=== PATIENT | male | born 1955 | race Caucasian/White ===

== ENCOUNTER 2017-03-10 09:53 | Day surgery (SDC) | payer BC ==
[2017-03-09 12:07] VITALS: BMI 36.3
[2017-03-10] MEDS ORDERED: PROPOFOL 20 ML ONE (10:17)
[2017-03-10] MEDS ORDERED: LIDOCAINE HCL/PF 2% SDV 5ML VIAL ONE (10:17)
[2017-03-10 11:00] VITALS: TEMP 97.3
[2017-03-10 11:40] VITALS: PULSE 54
[2017-03-10 15:12] VITALS: BP 129/80
--- NOTE | 2017-03-13 13:14 | PATH ---
Surgical Pathology Report Patient Name: ELINA CHÁVEZ [facility]. Rec. #: [id number] /Age/Gender: 1955 (Age: 61) / M Account: [id number] Location: [facility]-ENDOSCOPY Taken: 03/10/2017 Received: 03/10/2017 Reported: 03/13/2017 Physicians: Turner Slaughter M.D. Specimen(s) Received A: BX 2ND PORTION DUODENUM & DUODENAL BULB B: BX ANTRUM C: BX DISTAL & MID ESOPHAGUS Clinical History Occult GI bleeding, dysphagia Hiatal hernia, GERD, no varices Final Diagnosis A. DUODENUM, SECOND PORTION AND BULB, BIOPSY: DUODENAL MUCOSA WITH MILD CHRONIC INFLAMMATION AND ANGELICA'S GLANDS HYPERPLASIA. NO HISTOLOGIC EVIDENCE OF GLUTEN SENSITIVE ENTEROPATHY (CELIAC DISEASE). B. STOMACH, ANTRUM, BIOPSY: GASTRIC ANTRAL AND OXYNTIC MUCOSA WITH MODERATE CHRONIC GASTRITIS WITH FOCAL INTESTINAL METAPLASIA AND FOVEOLAR HYPERPLASIA. NEGATIVE FOR DYSPLASIA. IMMUNOSTAIN FOR H. PYLORI IS NEGATIVE FOR ORGANISMS. C. ESOPHAGUS, DISTAL AND MID, BIOPSY: SQUAMOUS AND FOCALLY COLUMNAR GASTRIC -TYPE MUCOSA WITH CHRONIC INFLAMMATION AND REFLUX TYPE CHANGES. NO INTESTINAL METAPLASIA (GAFFNEY'S ESOPHAGUS) IDENTIFIED NO EVIDENCE OF EOSINOPHILIC ESOPHAGITIS. Electronically Signed Roland Stephens M.D. Gross Description A. Received in formalin, labeled "biopsy second portion of duodenum and duodenal bulb" are 4 davidson, irregular portions of soft tissue ranging from 0.2-0.4 cm in greatest dimension. The specimens are submitted in toto in one cassette. B. Received in formalin, labeled "biopsy antrum" are 4 davidson, irregular portions of soft tissue ranging from 0.2-0.5 cm in greatest dimension. The specimens are submitted in toto in one cassette. C. Received in formalin, labeled "biopsy distal and mid esophagus" are 4 davidson, irregular portions of soft tissue ranging from 0.3-0.6 cm in greatest dimension. The specimens are submitted in toto in one cassette. 03/10/201703/10/2017
== END 2017-03-10 12:30 | disposition home or self-care (01) ==
LOC: JASU-ENDO 09:53 → JASU-SURG 09:53 → JASU-ENDO 12:30
PROVIDERS: ATTEND Internal Medicine Gastroenterology
PROC: 0DB68ZX Excision of Stomach, Via Natural or Artificial Opening Endoscopic, Diagnostic (ICD-10-PCS; 2017-03-10)
PROC: 0DB28ZX Excision of Middle Esophagus, Via Natural or Artificial Opening Endoscopic, Diagnostic (ICD-10-PCS; 2017-03-10)
PROC: 0DB38ZX Excision of Lower Esophagus, Via Natural or Artificial Opening Endoscopic, Diagnostic (ICD-10-PCS; 2017-03-10)
PROC: 0DB98ZX Excision of Duodenum, Via Natural or Artificial Opening Endoscopic, Diagnostic (ICD-10-PCS; principal; 2017-03-10 11:00)
DX: K21.9 Gastro-esophageal reflux disease without esophagitis (principal); K44.9 Diaphragmatic hernia without obstruction or gangrene; R13.10 Dysphagia, unspecified; K92.1 Melena
CPT/HCPCS: 88305-TC; 88342-TC

== ENCOUNTER 2017-04-12 07:42 | Day surgery (SDC) | payer BC ==
[2017-04-11 14:07] VITALS: BMI 35.6
[2017-04-12] MEDS ORDERED: PROPOFOL 20 ML ONE ×2 (08:55)
[2017-04-12 09:39] VITALS: TEMP 97.6
[2017-04-12 10:42] VITALS: BP 113/69; PULSE 60
--- NOTE | 2017-04-19 11:18 | PATH ---
Surgical Pathology Report Patient Name: ELINA CHÁVEZ [facility]. Rec. #: [id number] /Age/Gender: 1955 (Age: 61) / M Account: [id number] Location: [facility]-ENDOSCOPY Taken: 04/12/2017 Received: 04/12/2017 Reported: 04/13/2017 Physicians: Turner Slaughter M.D. Specimen(s) Received A: BX RECTAL POLYPS B: BX POLYPS PROXIMAL TRANSVERSE COLON C: BX POLYPS DESCENDING COLON D: BX POLYP SIGMOID COLON Clinical History Abnormal CT scan Colon polyps, diverticulosis Final Diagnosis A. RECTUM, POLYPS, BIOPSY: FRAGMENTS OF HYPERPLASTIC POLYPS. B. COLON, PROXIMAL TRANSVERSE, POLYPS, BIOPSY: TUBULAR ADENOMA. ADDITIONAL FRAGMENTS OF COLONIC MUCOSA WITH FOCAL SURFACE HYPERPLASTIC CHANGE. C. COLON, DESCENDING, POLYPS, BIOPSY: FRAGMENTS OF TUBULAR ADENOMA. ADDITIONAL FRAGMENTS OF UNREMARKABLE COLONIC MUCOSA. D. COLON, SIGMOID, POLYP, BIOPSY: HYPERPLASTIC POLYP. Electronically Signed Roland Stephens M.D. Gross Description A. Received in formalin, labeled "biopsy rectal polyps" are 3 davidson, irregular portions of soft tissue ranging from 0.1-0.3 cm in greatest dimension. The specimens are submitted in toto in one cassette. B. Received in formalin, labeled "biopsy polyps proximal transverse colon" are 5 davidson, irregular portions of soft tissue ranging from 0.1-0.5 cm in greatest dimension. The specimens are submitted in toto in one cassette. C. Received in formalin, labeled "biopsy polyps ascending colon" are 6 davidson, irregular portions of soft tissue ranging from 0.1-0.3 cm in greatest dimension. The specimens are submitted in toto in one cassette. D. Received in formalin, labeled "biopsy polyp sigmoid" is a davidson, irregular portion of soft tissue measuring 0.3 cm in greatest dimension. The specimen is submitted in toto in one cassette. 04/12/201704/12/2017
== END 2017-04-12 10:42 | disposition home or self-care (01) ==
LOC: JASU-ENDO 07:42
PROVIDERS: ATTEND Internal Medicine Gastroenterology
PROC: 0DBM8ZX Excision of Descending Colon, Via Natural or Artificial Opening Endoscopic, Diagnostic (ICD-10-PCS; 2017-04-12)
PROC: 0DBN8ZX Excision of Sigmoid Colon, Via Natural or Artificial Opening Endoscopic, Diagnostic (ICD-10-PCS; 2017-04-12)
PROC: 0DBL8ZX Excision of Transverse Colon, Via Natural or Artificial Opening Endoscopic, Diagnostic (ICD-10-PCS; principal; 2017-04-12 09:00)
DX: D12.4 Benign neoplasm of descending colon (principal); D12.3 Benign neoplasm of transverse colon; D12.5 Benign neoplasm of sigmoid colon; K57.80 Diverticulitis of intestine, part unspecified, with perforation and abscess without bleeding; K64.8 Other hemorrhoids
CPT/HCPCS: 88305-TC

== ENCOUNTER 2019-10-16 11:44 | Emergency (ER) | payer OTHER, MEDICARE ==
[2019-10-16 11:54] VITALS: BMI 36.4
[2019-10-16 13:10] VITALS: TEMP 97.3
[2019-10-16] MEDS: SODIUM CHLORIDE 1,000 ML IV STA ×2 (13:28→15:57)
--- NOTE | 2019-10-16 13:30 | PDOC ---
History of Present Illness - General Chief Complaint: Lightheaded Stated Complaint: DIZZYNESS Time Seen by Provider: 10/16/19 12:19 History Source: Patient Exam Limitations: No Limitations - History of Present Illness Initial Comments: 10/16/19 13:24 Patient is a 64M with history of HTN, back pain, knee pain (s/p L TKR) here today complaining of dizziness that started yesterday. Patient states that he became concerned when he wasn't able to have a spinal fusion procedure he was scheduled for yesterday due to his blood pressure being in the 200s. He became more concerned today because he measured his blood pressure at 250 systolic at home. Patient states that he has been feeling weak going from a sitting or supine position to standing. The feeling quickly passes. He denies any dizziness at this moment. Patient reports he was started on losartan/HCTZ yesterday and has been urinating more frequently. Patient denies nausea, vomiting, fevers chills. Denies chest pain, shortness of breath, focal weakness. Denies headache. Denies abdominal pain, dysuria. Endorses drinking 10 beers once per week. Denies history of stroke, heart failure. Past History - Past Medical History Allergies/Adverse Reactions: Allergies Allergy/AdvReac Type Severity Reaction Status Date / Time No Known Allergies Allergy Verified 10/16/19 11:54 Home Medications: Ambulatory Orders Carvedilol [Coreg -] 25 mg PO BID 03/09/17 Losartan/Hydrochlorothiazide [Losartan-Hctz 100-25 mg Tab] 1 tab PO DAILY Meloxicam [Mobic] 15 mg PO DAILY 03/09/17 Tamsulosin HCl [Flomax -] 0.4 mg PO HS 04/11/17 Hydrochlorothiazide 25 mg PO DAILY 10/16/19 Omeprazole 20 mg PO DAILY 10/16/19 COPD: No GI Disorders: Yes (COLON POLYPS;GERD;DIVERTICULOSIS;HH) Disorders: Yes (BPH) HTN: Yes Liver Disease: (FATTY LIVER) - Surgical History Orthopedic Surgery: Yes (KNEE SURGERY) - Psycho Social/Smoking Cessation Hx Smoking History: Former smoker Have you smoked in the past 12 months: No If you are a former smoker, when did you quit?: 10/2016 Information on smoking cessation initiated: No Hx Alcohol Use: Yes (OCCA.) Drug/Substance Use Hx: Yes (QUIT ; COCAINE, MARIJUANA, BLACK BEAUTIES) Substance Use Type: Cocaine Hx Substance Use Treatment: No Review of Systems - Review of Systems Able to Perform ROS?: Yes Comments:: 10/16/19 13:28 GENERAL/CONSTITUTIONAL: No fever or chills. No weakness. HEAD, EYES, EARS, NOSE AND THROAT: No change in vision. No ear pain or discharge. No sore throat. CARDIOVASCULAR: No chest pain or shortness of breath RESPIRATORY: No cough, wheezing, or hemoptysis. GASTROINTESTINAL: No nausea, vomiting, diarrhea or constipation. GENITOURINARY: No dysuria, frequency, or change in urination. MUSCULOSKELETAL: No joint or muscle swelling or pain. No neck or back pain. SKIN: No rash NEUROLOGIC: No headache, loss of consciousness, or change in strength/ sensation. +Dizziness ENDOCRINE: No increased thirst. No abnormal weight change ALLERGIC/IMMUNOLOGIC: No hives or skin allergy. *Physical Exam - Vital Signs Last Vital Signs Temp Pulse Resp BP Pulse Ox 97.3 F L 79 18 188/97 H 98 10/16/19 11:50 10/16/19 11:50 10/16/19 11:50 10/16/19 11:50 10/16/19 11:50 - Physical Exam Comments: 10/16/19 13:30 GENERAL: Awake, alert, and fully oriented, in no acute distress HEAD: No signs of trauma, normocephalic, atraumatic EYES: PERRLA, EOMI, sclera anicteric, conjunctiva clear ENT: Auricles normal inspection, hearing grossly normal, nares patent, oropharynx clear without exudates. Moist mucosa NECK: Normal ROM, supple, no lymphadenopathy, JVD, or masses LUNGS: No distress, speaks full sentences, clear to auscultation bilaterally HEART: Regular rate and rhythm, normal S1 and S2, no murmurs, rubs or gallops, peripheral pulses normal and equal bilaterally. ABDOMEN: Soft, nontender, normoactive bowel sounds. No guarding, no rebound. No masses EXTREMITIES: Normal inspection, Normal range of motion, no edema. No clubbing or cyanosis. NEUROLOGICAL: Cranial nerves II through XII grossly intact. Normal speech, normal gait, no focal sensorimotor deficits SKIN: Warm, Dry, normal turgor, no rashes or lesions noted. ED Treatment Course - LABORATORY CBC & Chemistry Diagram: 10/16/19 13:30 10/16/19 13:30 - RADIOLOGY Radiology Studies Ordered: Category Date Time Status CHEST PA & LAT [RAD] Stat Radiology 10/16/19 13:23 Ordered Medical Decision Making - Medical Decision Making 10/16/19 13:30 Patient is a 64M with history of HTN, back pain, L TKR here today complaining of dizziness. Currently asymptomatic. BP 192/100 in triage. Vitals by position: Sitting - 192/100, HR 74 Standing - 175/111, HR 84 Suspect orthostatic hypotension caused by mild dehydration. DDx includes, but is not limited to: ACS, dysrhythmia. Stroke considered, but patient is currently asymptomatic and symptoms are associated with change of position. 10/16/19 13:45 EKG shows NSR with rate of 71. No st elevations/depressions. Normal axis. Normal intervals. No significant t wave abnormalities. 10/16/19 15:09 CBC normal CMP normal Trop negative. CXR shows no acute cardiopulmonary process. 10/16/19 17:45 Repeat BP 203/114, HR 75. Symptoms have resolved with fluids. Case d/w Dr Ruiz, cardiology. Agrees that dizziness caused by dehydration 2/2 medication. Will discontinue losartan/hctz. Will start on amlodipine. Will have appointment available tomorrow for patient. Given return precautions. Discharge - Discharge Information Problems reviewed: Yes Clinical Impression/Diagnosis: Dehydration Condition: Good Disposition: HOME - Admission No - Follow up/Referral Referrals: Silvino Gómez MD, MD [Primary Care Provider] - - Patient Discharge Instructions Patient Printed Discharge Instructions: Essential Hypertension Additional Instructions: Please follow up with Dr Ruiz or another human resources clerk in his group tomorrow. Please call [phone], state that you were seen in the ED today and Dr Ruiz wanted you added to the schedule on or Monday. Please return to the ED immediately if you have any new, worsening, or concerning symptoms, especially headache, chest pain and shortness of breath. Please take the amlodipine as prescribed until your human resources clerk or PCP changes it. Please stop taking the losartan and HCTZ. - Post Discharge Activity
[2019-10-16 14:16] VITALS: BP 183/78; PULSE 74
[2019-10-16 14:21] LABS: BASO % 1.4 % (0-2.0); EOS % 2.5 % (0-4.5); HEMATOCRIT 46.5 % (35.4-49); HEMOGLOBIN 15.6 GM/dL (11.7-16.9); MCH 28.8 pg (25.7-33.7); MCHC 33.6 g/dl (32.0-35.9); MEAN CELL VOLUME 85.7 fl (80-96); MONO % 10.2 % (3.8-10.2); NEUT % 62.9 % (42.8-82.8); PLATELET COUNT 272 K/MM3 (134-434); RBC 5.42 M/mm3 (4.00-5.60); RDW 14.1 % (11.9-15.9); WHITE BLOOD COUNT 7.2 K/mm3 (4.0-10.0)
[2019-10-16 14:56] LABS: ALBUMIN 3.8 g/dl (3.4-5.0); BILIRUBIN,TOTAL 0.8 mg/dL (0.2-1); BLOOD UREA NITROGEN 14.9 mg/dL (7-18); CALCIUM 9.5 mg/dL (8.5-10.1); CREATININE 0.8 mg/dL (0.55-1.3); MAGNESIUM 2.3 mg/dL (1.8-2.4); POTASSIUM 3.7 mmol/L (3.5-5.1); TOT PROT 6.9 g/dl (6.4-8.2)
--- NOTE | 2019-10-16 15:19 | EKG ---
Test Reason : Blood Pressure : / mmHG Vent. Rate : 071 BPM Atrial Rate : 071 BPM P-R Int : 178 ms QRS Dur : 082 ms QT Int : 410 ms P-R-T Axes : 017 008 016 degrees QTc Int : 445 ms POOR DATA QUALITY, INTERPRETATION MAY BE ADVERSELY AFFECTED NORMAL SINUS RHYTHM NORMAL ECG NO PREVIOUS ECGS AVAILABLE Confirmed by ALFONZO VU MD ([id number]) on 10/16/2019 3:18:57 PM Referred By: Confirmed By:ALFONZO VU MD
--- NOTE | 2019-10-16 15:31 | PDOC ---
Documentation entered by Sruthi Szymanski SCRIBE, acting as scribe for Vik Franco MD. Vik Franco MD: This documentation has been prepared by the Stephon eaton Joy, SCRIBE, under my direction and personally reviewed by me in its entirety. I confirm that the documentation accurately reflects all work, treatment, procedures, and medical decision making performed by me. Attending Attestation - Resident Resident Name: Silvino Martinez - ED Attending Attestation I have performed the following: I have examined & evaluated the patient, The case was reviewed & discussed with the resident, I agree w/resident's findings & plan, Exceptions are as noted - HPI HPI: 10/16/19 14:41 The patient is a 64 year old male with significant past medical history of HTN, back pain, knee pain (s/p left total knee replacement) who presents to the ED with concerns of high blood pressure (measured at home, systolic 250) and lightheadedness for 2 days. As per patient the lightheaded feeling began when he started taking losartan/HCTZ 2 days ago for elevated blood pressure. Patient describes the lightheadedness worsening when standing up and or moving from a supine position to sitting up. Patient is currently asymptomatic in the ED. Patient also notes frequency in urination. Denies headache, dizziness, focal weakness/numbness, visual sxs, chest pain, shortness of breath, abdominal pain, diarrhea, nausea, vomiting, LE edema. Allergies: NKA PCP: Dr. Silvino Gómez - Physicial Exam PE: 10/16/19 14:42 GENERAL: Awake, alert, and fully oriented, in no acute distress HEAD: No signs of trauma EYES: PERRLA, EOMI, sclera anicteric, conjunctiva clear ENT: Oropharynx clear without exudates. Dry MM NECK: Normal ROM, supple, no lymphadenopathy, JVD, or masses LUNGS: Breath sounds equal, clear to auscultation bilaterally. No wheezes, and no crackles HEART: Regular rate and rhythm, normal S1 and S2, no murmurs, rubs or gallops ABDOMEN: Soft, nontender, normoactive bowel sounds. No guarding, no rebound. No masses EXTREMITIES: Normal range of motion, no edema. No clubbing or cyanosis. No cords , erythema, or tenderness NEUROLOGICAL: Normal speech, cranial nerves intact, negative pronator drift, 5/ 5 strength in all 4 extremities, normal sensation to light touch in all 4 extremities, normal cerebellar exam, normal gait SKIN: Warm, Dry, normal turgor, no rashes or lesions noted. - Medical Decision Making 10/16/19 [id number] male with a history of elevated blood pressure presents the emergency department with elevated blood pressure readings and lightheadedness upon sitting up from a supine position or after standing for 2 days. Patient started combination losartan and hydrochlorothiazide pill for elevated blood pressure by his primary doctor 2 days ago. Blood pressure here is elevated. Exam within normal limits. Patient is likely dehydrated secondary to new hydrochlorothiazide. Will obtain labs and urinalysis for endorgan damage given elevated blood pressure readings. We will also hydrate the patient and reassess. Attempted to speak with patient's primary physician, however he is not in the office today. 10/16/19 18:00 Patient is feeling a lot better after fluids, denies any lightheadedness. He was likely dehydrated secondary to hydrochlorothiazide use. His blood pressure, however, continues to be elevated in the emergency department. He has no evidence of endorgan damage on his blood work or urinalysis. As such, the case was discussed with Dr. Ruiz from cardiology. He recommends that we stop the losartan and hydrochlorothiazide and initiate the patient on amlodipine 5 mg. He also wants to follow-up with the patient within 1 to 2 days. Plan discussed with patient who expresses understanding. Patient is well-appearing, and clinically stable for discharge home. I discussed the physical exam findings, ancillary test results and final diagnoses with the patient. I answered all of the patient's questions. The patient was satisfied with the care received and felt comfortable with the discharge plan and treatment plan. The patient will call their primary care physician within 24 hours to arrange follow-up and will return to the Emergency Department with any new, persistent or worsening symptoms. Heart Score/ECG Review #1 10/16/19 15:30 Twelve-lead EKG was performed and reviewed by me. Normal sinus rhythm, rate 71. Normal axis and intervals. No ST elevations or T wave inversions.
[2019-10-16 16:29] LABS: URINE APPEARANCE CLEAR; URINE BILIRUBIN NEGATIVE (NEGATIVE); URINE COLOR YELLOW; URINE GLUCOSE (UA) NEGATIVE (NEGATIVE); URINE KETONE 1+ (NEGATIVE); URINE LEUK ESTERASE NEGATIVE (NEGATIVE); URINE NITRITE NEGATIVE (NEGATIVE); URINE PROTEIN NEGATIVE (NEGATIVE)
[2019-10-16 16:48] LABS: INR 1.02 (0.83-1.09)
[2019-10-16 17:12] LABS: INR 1.02 (0.83-1.09)
[2019-10-16 17:15] LABS: ACTIVATED PTT 31.9 SECONDS (25.2-36.5)
[2019-10-16] MEDS ORDERED: amLODIPine BESYLATE 5 MG TABLET (FP) PO ONE (17:51)
[2019-10-16] MEDS ORDERED: amLODIPine BESYLATE 5 MG TABLET (FP) ONE (18:01)
== END 2019-10-16 18:32 | disposition home or self-care (01) ==
LOC: JER 11:44
PROC: 3E0337Z Introduction of Electrolytic and Water Balance Substance into Peripheral Vein, Percutaneous Approach (ICD-10-PCS; principal; 2019-10-16)
DX: E86.0 Dehydration (principal); I10 Essential (primary) hypertension; M54.9 Dorsalgia, unspecified; Z96.652 Presence of left artificial knee joint; K76.0 Fatty (change of) liver, not elsewhere classified; N40.0 Benign prostatic hyperplasia without lower urinary tract symptoms; K21.9 Gastro-esophageal reflux disease without esophagitis
CPT/HCPCS: 36415; 71046-TC-FY; 80053; 81003; 83735; 85025; 85610; 85730; 93005; 93010; 96360; 99284-25; J7030

== ENCOUNTER 2025-03-03 17:50 | Inpatient (IN) | payer OTHER, MEDICARE ==
[2025-03-03 18:46] LABS: ABSOLUTE IMMATURE GRANULOCYTES 0.02 x10^3/uL (0.0-0.031); BASOPHILS # 0.01 x10^3/uL (0.01-0.08); EOSINOPHIL % 1.1 % (0.8-7.0); EOSINOPHILS # 0.08 x10^3/uL (0.04-0.54); HEMATOCRIT 43.9 % (40.1-51.0); HEMOGLOBIN 14.8 g/dL (13.7-17.5); MCHC 33.7 g/dl (32.3-36.5); MEAN CELL VOLUME 83.8 fl (79.0-92.2); MEAN PLT VOLUME 10.1 fl (9.4-12.4); MONOCYTE # 0.73 x10^3/uL (0.30-0.82); MONOCYTE % 10.2 % (5.3-12.2); PLATELET COUNT 256 x10^3/uL (163-337)
[2025-03-03 19:02] LABS: ALBUMIN 4.1 g/dl (3.4-5.0); BILIRUBIN,TOTAL 0.8 mg/dl (0.2-1); CALCIUM 9.6 mg/dl (8.5-10.1); POTASSIUM 3.2 mmol/L (3.5-5.1); TOT PROT 6.6 g/dl (6.4-8.2)
[2025-03-03] MEDS: SODIUM CHLORIDE 1,000 ML IV STA (19:30)
[2025-03-03] MEDS ORDERED: cefTRIAXone SODIUM 1 GM VIAL ONE (20:22)
[2025-03-03] MEDS: CEFTRIAXONE 1,000 MG in DEXTROSE 5%-WATER - 50 ML IVPB ONE (20:35)
[2025-03-03 21:09] LABS: HCV DIAGNOSTIC IN-HOUSE W/RFLX NON-REACTIVE (NONREACTIVE); HIV INTERPRETATION NEGATIVE (NEGATIVE)
[2025-03-03] MEDS ORDERED: PATIENT'S OWN MEDICATION (NON-FORMULARY) (Meloxicam [Meloxicam] 15 MG Tablet) PO PRN (22:20)
[2025-03-03] MEDS: POTASSIUM CHLORIDE ORAL LIQUID 20 MEQ/15 ML PO ONE (22:26)
[2025-03-04] MEDS: IBUPROFEN 200 MG TABLET PO ONE (03:41)
[2025-03-04 04:21] VITALS: BMI 27.3
[2025-03-04] MEDS: CARBIDOPA/LEVODOPA 25/100 TABLET (FP) PO SCH ×2 (06:30→09:26)
[2025-03-04 08:14] LABS: ABSOLUTE IMMATURE GRANULOCYTES 0.01 x10^3/uL (0.0-0.031); BASOPHILS # 0.01 x10^3/uL (0.01-0.08); EOSINOPHIL % 0.6 % (0.8-7.0); EOSINOPHILS # 0.03 x10^3/uL (0.04-0.54); HEMATOCRIT 42.3 % (40.1-51.0); HEMOGLOBIN 14.3 g/dL (13.7-17.5); MCHC 33.8 g/dl (32.3-36.5); MEAN CELL VOLUME 82.9 fl (79.0-92.2); MEAN PLT VOLUME 10.2 fl (9.4-12.4); MONOCYTE # 0.48 x10^3/uL (0.30-0.82); MONOCYTE % 9.2 % (5.3-12.2); PLATELET COUNT 248 x10^3/uL (163-337); RDW 12.8 % (12.2-16.6)
[2025-03-04 09:05] LABS: CREATININE 0.7 mg/dl (0.6-1.3); POTASSIUM 3.1 mmol/L (3.5-5.1)
[2025-03-04] MEDS: TAMSULOSIN HCL 0.4 MG CAP PO SCH (09:26)
[2025-03-04] MEDS: SERTRALINE HCL 50 MG TABLET (FP) PO SCH (09:26)
[2025-03-04] MEDS: amLODIPine BESYLATE 5 MG TABLET (FP) PO SCH (09:26)
[2025-03-04] MEDS: CEFTRIAXONE 1 GM in DEXTROSE 5%-WATER - 50 ML IVPB SCH (09:26)
[2025-03-04] MEDS: amLODIPine BESYLATE 5 MG TABLET (FP) PO ONE (14:40)
[2025-03-04] MEDS ORDERED: oxyCODONE HCL 5 MG TABLET PO PRN (17:04)
[2025-03-04] MEDS: POTASSIUM CHLORIDE TABS 20 MEQ TABLET.ER (FP) PO ONE (17:40)
[2025-03-04] MEDS ORDERED: DONEPEZIL HCL 10 MG TABLET (FP) PO SCH (22:00)
[2025-03-05] MEDS ORDERED: SERTRALINE HCL 50 MG TABLET (FP) PO SCH (10:00)
[2025-03-05] MEDS: amLODIPine BESYLATE 10 MG TABLET (FP) PO SCH (10:07)
[2025-03-05] MEDS: SERTRALINE HCL 50 MG TABLET (FP) PO SCH (10:07)
[2025-03-05] MEDS: DONEPEZIL HCL 10 MG TABLET (FP) PO SCH (10:07)
[2025-03-05 11:17] LABS: CALCIUM 9.3 mg/dl (8.5-10.1); CREATININE 0.7 mg/dl (0.6-1.3); POTASSIUM 3.6 mmol/L (3.5-5.1)
[2025-03-05] MEDS: CYANOCOBALAMIN (VITAMIN B-12) 1000 MCG/1 ML VIAL IM ONE (11:27)
[2025-03-05] MEDS ORDERED: MELATONIN 5 MG TABLETS PO PRN (21:34)
[2025-03-06] MEDS ORDERED: traMADol HCL 50 MG TABLET PO PRN (16:55)
[2025-03-06] MEDS: ACETAMINOPHEN 500 MG TABLET (FP) PO SCH (16:58)
[2025-03-06] MEDS: LOSARTAN POTASSIUM 25 MG TABLET PO ONE (16:58)
[2025-03-07 06:38] VITALS: PULSE 77; RESP 18
[2025-03-07] MEDS: LOSARTAN POTASSIUM 25 MG TABLET PO SCH (09:46)
[2025-03-07 10:02] VITALS: BP 144/83; TEMP 98
== END 2025-03-07 11:46 | DRG 57 ==
LOC: FER 17:50 → FM/S 20:36 → OBSVTOIN 03-04 10:23
PROVIDERS: ADMIT Student in an Organized Health Care Education/Training Program; ATTEND Family Medicine
DX: G20.A1 Parkinson's disease without dyskinesia, without mention of fluctuations (principal); N39.0 Urinary tract infection, site not specified; R29.6 Repeated falls; I10 Essential (primary) hypertension; F03.90 Unspecified dementia, unspecified severity, without behavioral disturbance, psychotic disturbance, mood disturbance, and anxiety; F32.A Depression, unspecified
CPT/HCPCS: 0241U-QW; 36415; 70450-TC; 71045-TC-FY; 72125-TC; 80048; 80053; 81003; 81015; 82550; 82553; 82607; 83735; 84436; 84443; 84484; 85025; 86780; 86803; 87086; 87389; 93005; 97116-GP; 97162-GP; 99285-25; G0378